=== PATIENT | male | born 1990 | race Two or more races ===

== ENCOUNTER 2020-09-01 15:27 | Emergency (ER) | payer SELFPAY ==
[~2020-09-01] VITALS: Ht 154.9 cm; Wt 72.6 kg
[2020-09-01] MEDS ORDERED: Tylenol #3 tab (300mg/30mg) ONE (15:51)
[2020-09-01 16:00] VITALS: BP 135/86
[2020-09-01] MEDS ORDERED: Ketorolac 30mg Inj IM ONE (16:00)
[2020-09-01] MEDS ORDERED: Tetanus/Diptheria/Pertussis IM ONE (16:00)
[2020-09-01] MEDS ORDERED: Tylenol #3 tab (300mg/30mg) ORAL ONE (16:00)
--- NOTE | 2020-09-01 17:02 | Emergency Room Report ---
History of Present Illness General Chief Complaint: Laceration Present Illness HPI 30-year-old male with no significant past medical history here due to a laceration left thumb that happened while cleaning a mirror. Has full range of motion, neurovascularly intact. Has full strength. No arterial damage noted. Patient is not up-to-date with tetanus shot. Patient reports that he has history of seizures and currently taking Keppra. Last seizure was a year ago. Patient is up-to-date with his visits with his neurologist. Active bleeding noted on the thenar aspect of the volar side of left thumb and an avulsion laceration noted left second metacarpal. Denies taking blood thinners. Allergies: Coded Allergies: No Known Allergies (Unverified , 09/01/20) COVID-19 Screening Contact w/high risk pt: No Experienced COVID-19 symptoms?: No COVID-19 Testing performed SIDEWALK REPAIRER: No Patient History Past Medical History: see triage record Past Surgical History: none Pertinent Family History: none Immunizations: other - Tdap given today Reviewed Nursing Documentation: PMH: Agreed; PSxH: Agreed Nursing Documentation-PMH Past Medical History: No History, Except For Hx Seizures: Yes Review of Systems All Other Systems: negative except mentioned in HPI Physical Exam Vital Signs Date Time Temp Pulse Resp B/P (MAP) Pulse Ox O2 Delivery O2 Flow Rate FiO2 09/01/20 15:35 98.1 95 18 136/82 (100) 95 Room Air Sp02 EP Interpretation: reviewed, normal General Appearance: no apparent distress, alert, GCS 15, non-toxic Head: normocephalic, atraumatic Eyes: bilateral eye normal inspection, bilateral eye PERRL Neck: full range of motion, supple/symm/no masses Respiratory: lungs clear, no rhonchi, no respiratory distress, no retraction Cardiovascular #1: no edema, no gallop, no murmur, no rub Cardiovascular #2: 2+ radial (R), 2+ radial (L) Gastrointestinal: soft Musculoskeletal: back normal, non-tender, other - Patient is neurovascularly intact Neurologic: alert, motor strength/tone normal, oriented x3, sensory intact, responsive, speech normal Skin: laceration - Left thumb on thenar aspect about 2 cm left second meta carpal avulsion laceration Lymphatic: no adenopathy Procedures Laceration/Wound Repair Laceration/Wound Repair #1: Consent: Verbal Wound Location: upper extremity - Left thumb Wound's Depth, Shape: into muscle Wound Length (cm): 2 Wound Explored: contaminated Betadine Prep?: Yes Anesthesia: 1% Lidocaine Volume Anesthetic (ccs): 10 Wound Debrided: minimal Wound Repaired With: sutures Suture Size/Type: 4:0, proline Number of Sutures: 10 Layer Closure?: Yes Sterile Dressing Applied?: Yes Splint Applied?: Yes Type of Splint Applied: velcro thumb spica Sling Applied?: No Patient Tolerated: Well Complications: None Laceration/Wound Repair #2: Consent: Verbal Wound Location: upper extremity - left second metacarpal Wound's Depth, Shape: superficial Wound Length (cm): 1 Wound Explored: contaminated Betadine Prep?: Yes Wound Repaired With: Dermabond Layer Closure?: Yes Sterile Dressing Applied?: Yes Splint Applied?: Yes Sling Applied?: No Patient Tolerated: Well Complications: None Medical Decision Making PA Attestation All my diagnosis and treatment plans were reviewed ad discussed with my supervising physician Dr. Phelan Diagnostic Impression: Primary Impression: Laceration of left thumb with foreign body ER Course 30-year-old male with no significant past medical history here due to a laceration left thumb that happened while cleaning a mirror. Has full range of motion, neurovascularly intact. Has full strength. No arterial damage noted. Patient is not up-to-date with tetanus shot. Patient reports that he has history of seizures and currently taking Keppra. Last seizure was a year ago. Patient is up-to-date with his visits with his neurologist. Active bleeding noted on the thenar aspect of the volar side of left thumb and an avulsion laceration noted left second metacarpal. Denies taking blood thinners. Ddx considered but are not limited to : Superficial laceration, deep laceration, tendon involvement with laceration, laceration with foreign body Vital signs: are WNL, pt. is afebrile H&PE are most consistent with: Laceration left thumb with foreign body ORDERS: Left hand x-ray, Augmentin, Tylenol 3, regular Tylenol ED INTERVENTIONS: Toradol IM, Tylenol 3, Tdap, wound closure I flushed and irrigated the wound several times to remove a small piece of glass, in case, do not remove, wound was repaired properly, patient left foot on proper antibiotic, wound dressing and splint and instructions to follow-up with orthopedic hand specialist. DISCHARGE: At this time pt. is stable for d/c to home. Will provide printed patient care instructions, and any necessary prescriptions. Care plan and follow up instructions have been discussed with the patient prior to discharge. Sutures to be removed in 7 to 10 days, patient take medication as directed, follow-up with hand specialist, worsening symptoms return to the emergency room Other X-Ray Diagnostic Results Other X-Ray Diagnostic Results : X-Ray ordered: Left hand # of Views/Limited Vs Complete: 3 View Indication: Pain EP Interpretation: Yes MAXIMILIANO Xray: Interpretation reviewed, by supervising MD, and agrees with findings. Interpretation: no dislocation, no soft tissue swelling, no fractures, other - Small piece of glass noted left thumb Impression: No acute disease Electronically Signed by: Sheila Juan PA-C Last Vital Signs Date Time Temp Pulse Resp B/P (MAP) Pulse Ox O2 Delivery O2 Flow Rate FiO2 09/01/20 16:00 98.2 98 18 135/86 95 Room Air Status: improved Disposition: HOME, SELF-CARE Condition: Stable Scripts Acetaminophen With Codeine (T#3) (TYLENOL #3 TAB*) Y Tab 1 TAB ORAL BID PRN for For Pain for 4 Days, #8 TAB Prov: Sheila Almeida 09/01/20 Acetaminophen* (TYLENOL EXTRA STRENGTH*) 500 Mg Tablet 500 MG ORAL Q8H PRN for Prn Headache/Temp > 101, #30 TAB 0 Refills Prov: Sheila Almeida 09/01/20 Amoxicillin/Potassium Clav 875-125* (AUGMENTIN 875-125 TABLET*) 1 Each Tablet 1 TAB ORAL TWICE A DAY for 10 Days, #20 TAB Prov: Sheila Almeida 09/01/20 Referrals: NOT CHOSEN IPA/,REFERRING (PCP) Patient Instructions: Laceration Care, Adult Additional Instructions: Take medication as directed, follow primary care provider, sutures to be removed in 7 to 10 days, follow-up with a hand specialist, if worsening symptoms return to emergency Sheila Almeida Sep 01, 2020 17:02
[2020-09-01] MEDS ORDERED: ACETAMINOPHEN-1 EAC1 ORAL (17:03)
[2020-09-01] MEDS ORDERED: AUGMENTIN 875-1 EAC1 ORAL (17:03)
[2020-09-01] MEDS ORDERED: TYLENOL EXTRA500 MG ORAL (17:03)
--- NOTE | 2020-09-01 17:14 | NUR ---
ED Nurse Note: Pt walked into ED from home for L hand laceration. Pt was cleaning mirror got laceration on glass. Pt thinks piece of glass is in hand. Pt has moderate amount of bleeding. Pt is alert and orientedx4, ambulatory. Pt arrived with tourniquet on L hand.
--- NOTE | 2020-09-01 17:34 | NUR ---
ER DISCHARGE NOTE: Patient is cleared to be discharged per ERMD, pt is aox4, on room air, with stable vital signs. pt was given dc and prescription instructions, pt was able to verbalize understanding, pt id band removed. pt is able to ambulate with steady gait. pt took all belongings. Pt has dressing wrapped, and splint applint to L arm. Pulses 3+ on L hand radial, cap refill less than 3 sec L hand.
[2020-09-01 17:35] VITALS: BP 130/82
--- NOTE | 2020-09-02 14:12 | Diagnostic Imaging Report ---
Indication: Trauma, left thumb laceration Technique: 3 views left hand Comparison: none Findings: Superficial soft tissue irregularity at the medial base of the thumb and superficial to the first metacarpal bone likely reflect stated clinical history of penetrating trauma. A metallic foreign body projects posterior to the first metacarpal. Aspect no acute fracture. No bony disruption. Impression: Evidence of skin laceration and metallic foreign body. No acute bony trauma This agrees with the preliminary interpretation reported by the emergency room physician in the electronic medical record
== END 2020-09-01 17:36 | disposition home or self-care (01) ==
LOC: EMR 16:07
DX: S61.022A Laceration with foreign body of left thumb without damage to nail, initial encounter (principal); W25.XXXA Contact with sharp glass, initial encounter; Y92.9 Unspecified place or not applicable; Z23 Encounter for immunization; G40.909 Epilepsy, unspecified, not intractable, without status epilepticus; Z79.899 Other long term (current) drug therapy
CPT/HCPCS: 12042; 73130; 90471; 90715; 96372; 99283; J1885

== ENCOUNTER 2020-09-09 15:42 | Emergency (ER) | payer SELFPAY ==
[~2020-09-09] VITALS: Ht 162.6 cm; Wt 72.6 kg
[~2020-09-09 15:42] MED LIST: ACETAMINOPHEN-1 EAC1 ORAL; AUGMENTIN 875-1 EAC1 ORAL; TYLENOL EXTRA500 MG ORAL
--- NOTE | 2020-09-09 16:01 | Emergency Room Report ---
History of Present Illness General Chief Complaint: Wound Recheck/Suture Removal Source: Patient Present Illness HPI 30 YO Male presents to the ED c/o sutures in the left thumb that need to be removed s/p wound closure approximately 1 week ago. Pt. denies pain or tenderness. Pt. reports he has not removed splint or dressing that was placed. He reports he has not performed any wound care. Pt. reports he also has not followed up with a PCP, or orthopedic hand specialist since his ED visit. He denies bleeding or DC. Pt. reports he is UTD with vaccinations. Denies fevers, chills or paresthesias. Allergies: Coded Allergies: No Known Allergies (Unverified , 09/01/20) COVID-19 Screening Contact w/high risk pt: No Experienced COVID-19 symptoms?: No COVID-19 Testing performed WAITER/WAITRESS FORMAL: No Patient History Past Medical History: see triage record Past Surgical History: none Pertinent Family History: none Reviewed Nursing Documentation: PMH: Agreed; PSxH: Agreed Nursing Documentation-PMH Past Medical History: No History, Except For Hx Seizures: Yes Review of Systems All Other Systems: negative except mentioned in HPI Physical Exam Vital Signs Date Time Temp Pulse Resp B/P (MAP) Pulse Ox O2 Delivery O2 Flow Rate FiO2 09/09/20 15:52 98.2 70 18 131/83 (99) 96 Room Air Sp02 EP Interpretation: reviewed, normal General Appearance: no apparent distress, alert, GCS 15, non-toxic Head: normocephalic, atraumatic Eyes: bilateral eye normal inspection, bilateral eye PERRL ENT: hearing grossly normal, normal voice Neck: full range of motion Respiratory: lungs clear, normal breath sounds, speaking full sentences Cardiovascular #1: regular rate, rhythm, normal capillary refill Musculoskeletal: normal range of motion, gait/station normal, non-tender Neurologic: alert, motor strength/tone normal, oriented x3, sensory intact, responsive, speech normal Psychiatric: judgement/insight normal Skin: other - healed laceration of the left thumb there is some dehiscence where portions of the sutures were impeding the skin's ability to approximate. There is scant discharge. No surrounding erythema. Flap avulsion that did not take and has some scant bleeding to the palm of the left hand just under the second metacarpal. Lymphatic: no adenopathy Medical Decision Making PA Attestation Dr. Reid Is my supervising Physician whom patient management has been discussed with. Diagnostic Impression: Primary Impression: Encounter for removal of sutures ER Course 30 YO Male presents to the ED c/o sutures in the left thumb that need to be removed s/p wound closure approximately 1 week ago. Pt. denies pain or tenderness. Pt. reports he has not removed splint or dressing that was placed. He reports he has not performed any wound care. Pt. reports he also has not followed up with a PCP, or orthopedic hand specialist since his ED visit. He denies bleeding or DC. Pt. reports he is UTD with vaccinations. Denies fevers, chills or paresthesias. Ddx considered but are not limited to laceration, tendon injury, cellulitis,dehi scence. Vital signs: are WNL, pt. is afebrile. H&PE are most consistent with: healed laceration of the left thumb there is s ome dehiscence where portions of the sutures were impeding the skin's ability to approximate. There is scant discharge. No surrounding erythema. Flap avulsion that did not take and has some scant bleeding to the palm of the left hand just under the second metacarpal. ORDERS: none required at this time, the diagnosis is clinical ED INTERVENTIONS: - 10 Sutures removed. -d/w pt. remainder of wound will need to close by secondary intent, will rx abx. Also reiterated the importance of follow up with orthopedic hand specialist. DISCHARGE: At this time pt. is stable for d/c to home. Will provide printed patient care instructions, and any necessary prescriptions. Care plan and follow up instructions have been discussed with the patient prior to discharge. Last Vital Signs Date Time Temp Pulse Resp B/P (MAP) Pulse Ox O2 Delivery O2 Flow Rate FiO2 09/09/20 15:52 98.2 70 18 131/83 (99) 96 Room Air Disposition: HOME, SELF-CARE Condition: Stable Scripts Bacitracin (Bacitracin) 28.4 Gm Oint...g. 1 APPLIC TOPIC THREE TIMES A DAY, #28.3 GM Prov: Yola Harman 09/09/20 Cephalexin* (KEFLEX*) 500 Mg Capsule 500 MG ORAL EVERY 12 HOURS for 7 Days, #14 CAP 0 Refills Prov: Yola Harman 2/3/21 Patient Instructions: Suture Removal, Care After Additional Instructions: Take medications as directed. Follow up with a Primary Care Provider in 3-5 days, even if your symptoms have resolved. --Please review list of primary care clinics, if you do not already have a [facility] care provider Return sooner to ED if new symptoms occur, or current symptoms become worse. - Please note that this Emergency Department Report was dictated using [employer] cleaner technology software, occasionally this can lead to stephany eous entry secondary to interpretation by the dictation equipment. Yola Harman Sep 09, 2020 16:01
[2020-09-09 16:12] VITALS: BP 131/83
[2020-09-09] MEDS ORDERED: BACITRACIN15 GM TOPIC (16:42)
[2020-09-09] MEDS ORDERED: CEPHALEXIN500 MG ORAL (16:42)
[2020-09-09] MEDS ORDERED: Bacitracin Oint UD TOPIC ONE (16:45)
[2020-09-09 16:53] VITALS: BP 131/83
== END 2020-09-09 16:54 | disposition home or self-care (01) ==
LOC: EMR 16:23
DX: Z48.02 Encounter for removal of sutures (principal); S61.012D Laceration without foreign body of left thumb without damage to nail, subsequent encounter; G40.909 Epilepsy, unspecified, not intractable, without status epilepticus; X58.XXXD Exposure to other specified factors, subsequent encounter
CPT/HCPCS: 99282